=== PATIENT | female | born 1990 | race Caucasian/White ===

== ENCOUNTER → 2021-04-10 | Outpatient (CLI) | payer BC | END | disposition home or self-care (01) | LOC: US 16:00 | PROVIDERS: ATTEND Nurse Practitioner Women's Health | DX: Z34.81 Encounter for supervision of other normal pregnancy, first trimester (principal); Z3A.10 10 weeks gestation of pregnancy ==

== ENCOUNTER 2021-04-20 18:54 | Emergency (ER) | payer BC ==
[~2021-04-20] VITALS: Ht 157.4 cm; Wt 59.0 kg
== END 2021-04-20 21:00 | disposition left against medical advice (07) ==
LOC: ED 18:54
DX: O46.91 Antepartum hemorrhage, unspecified, first trimester (principal); Z3A.12 12 weeks gestation of pregnancy; Z53.21 Procedure and treatment not carried out due to patient leaving prior to being seen by health care provider